=== PATIENT | male | born 1970 | race Two or more races ===

== ENCOUNTER 2017-05-27 21:50 | Emergency (ER) | payer MEDICAID ==
[~2017-05-27] VITALS: Ht 182.9 cm; Wt 95.3 kg
[2017-05-27 22:00] VITALS: BP 142/86
[2017-05-27] MEDS ORDERED: Acetaminophen 500mg (ES) tab ORAL ONE (22:30)
[2017-05-27] MEDS ORDERED: Ketorolac 30mg Inj IV ONE (22:30)
[2017-05-27 22:55] LABS: BASOPHILS % (AUTO) 1.7 % (0.0-2.0); EOSINOPHILS % (AUTO) 0.1 % (0.0-3.0); LYMPHOCYTES % (AUTO) 17.5 % (20.0-45.0); MEAN CORPUSCULAR HEMOGLOBIN 29.7 PG (27.0-31.0); MEAN CORPUSCULAR HGB CONC 32.7 G/DL (32.0-36.0); MEAN CORPUSCULAR VOLUME 91 FL (80-99); MONOCYTES % (AUTO) 12.4 % (1.0-10.0); NEUTROPHILS % (AUTO) 68.3 % (45.0-75.0); PLATELET COUNT 298 K/UL (150-450); RED BLOOD COUNT 4.88 M/UL (4.70-6.10); RED CELL DISTRIBUTION WIDTH 11.2 % (11.6-14.8); WHITE BLOOD COUNT 8.3 K/UL (4.8-10.8)
[2017-05-27 23:08] LABS: ANION GAP 6 mmol/L (5-15); CALCIUM 8.6 MG/DL (8.5-10.1); CARBON DIOXIDE 29 MMOL/L (21-32); CHLORIDE 90 MMOL/L (98-107); CREATININE 0.9 MG/DL (0.55-1.30); GLOMERULAR FILTRATION RATE > 60 mL/min (>60); POTASSIUM 3.5 MMOL/L (3.5-5.1); SODIUM 125 MMOL/L (136-145)
[2017-05-27 23:10] LABS: PROTHROMBIN TIME 10.6 SEC (9.30-11.50)
[2017-05-27 23:18] LABS: ALANINE AMINOTRANSFERASE 65 U/L (12-78); ALBUMIN/GLOBULIN RATIO 0.6 (1.0-2.7); ASPARTATE AMINO TRANSFERASE 42 U/L (15-37); TOTAL PROTEIN 8.8 G/DL (6.4-8.2)
[2017-05-27 23:21] LABS: APPEARANCE,URINE CLEAR; KETONES,URINE NEGATIVE (NEGATIVE); LEUKOCYTE ESTERASE ,URINE 1+ (NEGATIVE); NITRITE,URINE NEGATIVE (NEGATIVE); PH,URINE 7 (4.5-8.0); PROTEIN,URINE 3+ (NEGATIVE); UROBILINOGEN,URINE 1 MG/DL (0.0-1.0)
--- NOTE | 2017-05-27 23:27 | Emergency Room Report ---
History of Present Illness General Chief Complaint: Upper Respiratory Illness Source: Patient Present Illness HPI The patient has been ill for a week. He's had a cough and fever with chills. He is complaining of chest pain. He has dyspnea exertion and feels out of breath. He has no history of asthma. He also has chest pain which is constant. It also gets worse with deep breathing and exertion. The pain is severe radiated some to 8/10. He did not take any medication for this pain. No history of smoking, family history of cardiac disease, diabetes, hypertension , hypercholesterolemia. The patient has had some joint pains and headache. He feels weakened. There's no dizziness. Denies palpitations. His nausea without vomiting or diarrhea. There's no dysuria. Denies any skin rashes. The patient denies any drug use. Allergies: Coded Allergies: No Known Allergies (Unverified , 05/27/17) Patient History Past Medical History: see triage record Social History: Denies: smoking, alcohol use, drug use Social History Narrative , works maintenance Reviewed Nursing Documentation: PMH: Agreed, PSxH: Agreed Nursing Documentation-PMH Past Medical History: No Stated History Review of Systems All Other Systems: negative except mentioned in HPI Physical Exam Vital Signs Date Time Temp Pulse Resp B/P (MAP) Pulse Ox O2 Delivery O2 Flow Rate FiO2 05/27/17 21:52 100.9 125 18 142/86 96 Room Air Sp02 EP Interpretation: reviewed, abnormal - low as interpreted by me General Appearance: GCS 15, mild distress Head: normocephalic Eyes: bilateral eye normal inspection, bilateral eye PERRL ENT: moist mucus membranes Neck: supple Respiratory: crackles, other - decreased BS L Cardiovascular #1: no edema, tachycardia Cardiovascular #2: 2+ radial (R) Gastrointestinal: normal inspection, normal bowel sounds, non tender, no mass, non-distended Musculoskeletal: back normal, gait/station normal, normal range of motion, no calf tenderness Neurologic: alert, oriented x3, grossly normal Psychiatric: mood/affect normal Skin: normal inspection, warm/dry Procedures Critical Care Time Critical Care Time Total Critical Care Time: 30 min bedside evaluation and treatment excludes procedures (EKG). Reason for critical care: NSTEMI - transfer higher level Possible complications: hypotension, hypertension, [place], shock, arrhythmias, metabolic acidosis, end organ damage, respiratory failure. Interventions: Aspirin, antibiotics, fluid resuscitation, analgesia, transfer Course: Patient presents with febrile illness. Found to have + troponin and L infiltrate. CTA due to hypoxia. Antibiotics and analgesia ordered. Multiple discussions to arrange for transfer higher level of care. Aspirin given. Improved on re-evaluation. Consultations: nursing staff, EMS, family, [facility] - mat tester/industrial management teacher, ambulance transfer crew Performed by: Dr. Abdi Tolerated well condition = serious Medical Decision Making Diagnostic Impression: Primary Impression: NSTEMI (non-ST elevated myocardial infarction) Additional Impression: Pneumonia Qualified Codes: J18.1 - Lobar pneumonia, unspecified organism ER Course The patient presents with fever and chest pain with her cough. Differential includes influenza, pneumonia, bronchitis, acute cardial infarction, other infectious source. Evaluation will be was EKG, chest x-ray and labs. The patient will be treated with IV hydration and analgesia. He's hypoxemic in this is disconcerting in a nonsmoker. Initial EKG with some ST wave changes no STEMI. Chest x-ray with tenths left infiltrate and possible effusion. 23:15 lab called with + troponin. Antibiotics ordered, CTA also ordered and aspirin. Presented to [facility] mat tester - Dr. Melvin who accepts the patient and says no metoprolol or heparin. Presented to Dr. Woodall. Accepted at [facility]. Patient improved with 2/10 pain. Declines other pain medicine. Laboratory Tests Test 05/27/17 22:32 05/27/17 22:42 White Blood Count 8.3 K/UL (4.8-10.8) Red Blood Count 4.88 M/UL (4.70-6.10) Hemoglobin 14.5 G/DL (14.2-18.0) Hematocrit 44.4 % (42.0-52.0) Mean Corpuscular Volume 91 FL (80-99) Mean Corpuscular Hemoglobin 29.7 PG (27.0-31.0) Mean Corpuscular Hemoglobin Concent 32.7 G/DL (32.0-36.0) Red Cell Distribution Width 11.2 % (11.6-14.8) L Platelet Count 298 K/UL (150-450) Mean Platelet Volume 6.0 FL (6.5-10.1) L Neutrophils (%) (Auto) 68.3 % (45.0-75.0) Lymphocytes (%) (Auto) 17.5 % (20.0-45.0) L Monocytes (%) (Auto) 12.4 % (1.0-10.0) H Eosinophils (%) (Auto) 0.1 % (0.0-3.0) Basophils (%) (Auto) 1.7 % (0.0-2.0) Prothrombin Time 10.6 SEC (9.30-11.50) Prothrombin Time INR 1.0 (0.9-1.1) PTT 31 SEC (23-33) Sodium Level 125 MMOL/L (136-145) L Potassium Level 3.5 MMOL/L (3.5-5.1) Chloride Level 90 MMOL/L (98-107) L Carbon Dioxide Level 29 MMOL/L (21-32) Anion Gap 6 mmol/L (5-15) Blood Urea Nitrogen 9 mg/dL (7-18) Creatinine 0.9 MG/DL (0.55-1.30) Estimate Glomerular Filtration Rate > 60 mL/min (>60) Glucose Level 128 MG/DL (74-106) H Lactic Acid Level 0.80 mmol/L (0.66-2.22) Calcium Level 8.6 MG/DL (8.5-10.1) Total Bilirubin 0.4 MG/DL (0.2-1.0) Aspartate Amino Transferase (AST) 42 U/L (15-37) H Alanine Aminotransferase (ALT) 65 U/L (12-78) Alkaline Phosphatase 85 U/L (46-116) Total Creatine Kinase 140 U/L (26-308) Troponin I 0.178 ng/mL (0.000-0.056) Pro-B-Type Natriuretic Peptide 73 pg/mL (0-125) Total Protein 8.8 G/DL (6.4-8.2) H Albumin 3.3 G/DL (3.4-5.0) L Globulin 5.5 g/dL Albumin/Globulin Ratio 0.6 (1.0-2.7) L Urine Color Yellow Urine Appearance Clear Urine pH 7 (4.5-8.0) Urine Specific Sargent 1.005 (1.005-1.035) Urine Protein 3+ (NEGATIVE) H Urine Glucose (UA) Negative (NEGATIVE) Urine Ketones Negative (NEGATIVE) Urine Occult Blood 5+ (NEGATIVE) H Urine Nitrite Negative (NEGATIVE) Urine Bilirubin Negative (NEGATIVE) Urine Urobilinogen 1 MG/DL (0.0-1.0) H Urine Leukocyte Esterase 1+ (NEGATIVE) H Urine RBC 2-4 /HPF (0 - 0) H Urine WBC 10-15 /HPF (0 - 0) H Urine Squamous Epithelial Cells Occasional /LPF Urine Bacteria Few /HPF (NONE) Microbiology Date/Time Source Procedure Growth Status 05/27/17 22:32 Nasal Nares Influenza Types A,B Antigen (SAI) - Final Complete EKG Diagnostic Results Rate: normal Rhythm: NSR ST Segments: no acute changes Rhythm Strip Diag. Results EP Interpretation: yes Rhythm: no PVC's, no ectopy, other - ST Chest X-Ray Diagnostic Results Chest X-Ray Diagnostic Results : Chest X-Ray Ordered: Yes # of Views/Limited/Complete: 1 View Indication: Other Interpretation: no pneumothorax, other - L infiltrate, can't exclude effusion Impression: Other Electronically Signed by: Electronically signed by Tello Abdi MD CT/MRI/US Diagnostic Results CT/MRI/US Diagnostic Results : Imaging Test Ordered: CTA chest Impression infiltrate no PE Last Vital Signs Date Time Temp Pulse Resp B/P (MAP) Pulse Ox O2 Delivery O2 Flow Rate FiO2 05/28/17 05:19 100.3 98 18 141/83 96 Room Air Status: improved Disposition: XFER SHT-TRM HOSP Condition: Serious Scripts No Active Prescriptions or Reported Meds Referrals: [facility],REFERRING (PCP) Tello Abdi M.D. May 27, 2017 23:27
[2017-05-27] MEDS ORDERED: cefTRIAXone 1 GM in NS 55 ML IVPB ONE (23:30)
[2017-05-27 23:59] LABS: BACTERIA,URINE FEW /HPF; SQUAMOUS EPITHELIAL CELL,UR OCCASIONAL /LPF (NONE/OCC)
[2017-05-28 04:30] VITALS: BP 141/83
[2017-05-28 05:19] VITALS: BP 141/83
--- NOTE | 2017-05-28 08:43 | Diagnostic Imaging Report ---
Indication: Chest pain Technique: Continuous helical transaxial imaging of the chest was obtained from the thoracic inlet to the upper abdomen during rapid intravenous contrast administration. Arterial phase of enhancement obtained. Coronal 2-D reformats were also obtained and maximum intensity projection images in multiple planes. Study obtained in a Siemens sensation [address] Automatic Exposure Control was utilized. Total Dose length Product (DLP): 1299.[address] Dose Index Volume (CTDIvol): 33.86 0.17, 12.62 x 2 mGy Comparison: None Findings: The pulmonary artery is well opacified and shows no filling defects. There is dense lingular consolidation suspicious for pneumonia. Atelectasis versus secondary of infiltrate left lower lobe noted. Trace left pleural effusion is present. There is no adenopathy, pleural or pericardial effusions are identified. The aortic dissection or aneurysm identified within the chest. Visualized part of the upper abdomen is unremarkable. Impression: No pulmonary embolus or aortic dissection/aneurysm. Pneumonia involving the lingular segment. Follow-up and clinical correlation are recommended. [facility] has communicated the preliminary results to the Emergency Department. Their findings are largely concordant with this report. The CT scanner at [facility] is accredited by the [employer] and the scans are performed using dose optimization techniques as appropriate to a performed exam including Automatic Exposure control.
--- NOTE | 2017-05-28 12:16 | Diagnostic Imaging Report ---
Indication: Dyspnea Comparison: None A single view chest radiograph was obtained. Findings: Suspected infiltrate at the left lung base. Lung volumes are low bilaterally. Heart size is probably normal. There is an old left clavicle fracture. IMPRESSION: Suspected left basilar pneumonia.
--- NOTE | 2017-06-11 00:23 | Cardiology Report ---
APPROVED REPORT EKG Measurement Heart [id number] [place] [id number] Sinus tachycardia Otherwise normal ECG
--- NOTE | 2017-06-11 00:23 | Cardiology Report ---
APPROVED REPORT EKG Measurement Heart [id number] [id number] Sinus tachycardia with occasional premature ventricular complexes Inferior infarct, age undetermined Cannot rule out Anterior infarct, age undetermined Abnormal ECG
== END 2017-05-28 05:28 | disposition short-term general hospital (02) ==
LOC: EMR 22:30
DX: I21.4 Non-ST elevation (NSTEMI) myocardial infarction (principal); J18.9 Pneumonia, unspecified organism
CPT/HCPCS: 36415; 71010; 71275; 80053; 81003; 82550; 83605; 83880; 84484; 85025; 85610; 85730; 86710; 87086; 93005; 96361; 96365; 96366; 96375; 99285; J0696; J1885; J1956; Q9967

== ENCOUNTER 2017-06-18 20:17 | Emergency (ER) | payer MEDICAID ==
[~2017-06-18] VITALS: Ht 182.9 cm; Wt 90.7 kg
[2017-06-18] MEDS ORDERED: Ketorolac 30mg Inj IV ONE (20:45)
--- NOTE | 2017-06-18 21:00 | Emergency Room Report ---
History of Present Illness General Chief Complaint: Chest Pain Source: Patient Present Illness HPI The patient was awakened at 3 AM with chest pain. It's been intermittent. He wasn't short of breath at that time. No NV, palpitations, diaphoresis. It is somewhat better with ambulation and better today than last night. Pain now 2/10 , somewhat positional, not pleuritic. Not radiating. H/O recent evaluation at [facility] May 27. He had cardiac catheterization done at that time. He states his coronaries are clean. He presented with pneumonia and NSTEMI here and transferred. He denies fever chills nausea vomiting diarrhea melena. RF HTN and prior NSTEMI. 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 , maintenance Reviewed Nursing Documentation: PMH: Agreed, PSxH: Agreed Review of Systems All Other Systems: negative except mentioned in HPI Physical Exam Vital Signs Date Time Temp Pulse Resp B/P (MAP) Pulse Ox O2 Delivery O2 Flow Rate FiO2 06/18/17 20:22 98.8 69 18 139/90 98 Room Air Sp02 EP Interpretation: reviewed, normal General Appearance: well appearing, no apparent distress, GCS 15 Head: normocephalic Eyes: bilateral eye normal inspection ENT: moist mucus membranes Neck: supple Respiratory: lungs clear, normal breath sounds Cardiovascular #1: regular rate, rhythm Cardiovascular #2: 2+ radial (R) Gastrointestinal: normal inspection, normal bowel sounds, non tender, no mass, non-distended Musculoskeletal: back normal, gait/station normal, normal range of motion Neurologic: alert, oriented x3 Skin: normal inspection, warm/dry Medical Decision Making Diagnostic Impression: Primary Impression: Chest pain Qualified Codes: R07.89 - Other chest pain Additional Impression: Hypokalemia ER Course This patient with h/o NSTEMI and hypertension presents with chest pain. His presentation is atypical for CAD. He also had a recent cardiac catheterization which she states had normal coronaries. This bodes well, but with the recent h/ o NSTEMI we need to exclude cardiac injury. The patient reevaluated EKG, chest x-ray and labs. The patient will be treated with Pepcid and Toradol. EKG without injury. Labs with neg troponin. CXR clear. K low. Patient improved with treatment and denies pain. Patient stable for outpatient observation and treatment. Laboratory Tests Test 06/18/17 21:07 White Blood Count 6.2 K/UL (4.8-10.8) Red Blood Count 4.32 M/UL (4.70-6.10) L Hemoglobin 12.8 G/DL (14.2-18.0) L Hematocrit 40.3 % (42.0-52.0) L Mean Corpuscular Volume 93 FL (80-99) Mean Corpuscular Hemoglobin 29.7 PG (27.0-31.0) Mean Corpuscular Hemoglobin Concent 31.9 G/DL (32.0-36.0) L Red Cell Distribution Width 12.6 % (11.6-14.8) Platelet Count 276 K/UL (150-450) Mean Platelet Volume 7.1 FL (6.5-10.1) Neutrophils (%) (Auto) 42.0 % (45.0-75.0) L Lymphocytes (%) (Auto) 41.9 % (20.0-45.0) Monocytes (%) (Auto) 10.8 % (1.0-10.0) H Eosinophils (%) (Auto) 4.1 % (0.0-3.0) H Basophils (%) (Auto) 1.3 % (0.0-2.0) Sodium Level 140 MMOL/L (136-145) Potassium Level 3.3 MMOL/L (3.5-5.1) L Chloride Level 105 MMOL/L (98-107) Carbon Dioxide Level 28 MMOL/L (21-32) Anion Gap 7 mmol/L (5-15) Blood Urea Nitrogen 8 mg/dL (7-18) Creatinine 0.7 MG/DL (0.55-1.30) Estimate Glomerular Filtration Rate > 60 mL/min (>60) Glucose Level 110 MG/DL (74-106) H Calcium Level 9.2 MG/DL (8.5-10.1) Total Bilirubin 0.4 MG/DL (0.2-1.0) Aspartate Amino Transferase (AST) 30 U/L (15-37) Alanine Aminotransferase (ALT) 71 U/L (12-78) Alkaline Phosphatase 98 U/L (46-116) Total Creatine Kinase 403 U/L (26-308) H Troponin I 0.000 ng/mL (0.000-0.056) Total Protein 7.8 G/DL (6.4-8.2) Albumin 3.8 G/DL (3.4-5.0) Globulin 4.0 g/dL Albumin/Globulin Ratio 0.9 (1.0-2.7) L EKG Diagnostic Results Rate: normal Rhythm: NSR ST Segments: no acute changes ASA given to the pt in ED: No - he took ASA in AM Rhythm Strip Diag. Results EP Interpretation: yes Rhythm: NSR, no PVC's, no ectopy Chest X-Ray Diagnostic Results Chest X-Ray Diagnostic Results : Chest X-Ray Ordered: Yes # of Views/Limited/Complete: 1 View Indication: Chest Pain EP Interpretation: Yes Interpretation: no consolidation, no effusion, no pneumothorax, no acute cardiopulmonary disease Impression: No acute disease Electronically Signed by: Tello Abdi MD Last Vital Signs Date Time Temp Pulse Resp B/P (MAP) Pulse Ox O2 Delivery O2 Flow Rate FiO2 06/18/17 23:19 98.8 88 18 141/89 98 Room Air Status: improved Disposition: HOME, SELF-CARE Condition: Improved Scripts Ibuprofen* (MOTRIN*) 600 Mg Tablet 600 MG ORAL Q6H Y for For Pain, #20 TAB Prov: Tello Abdi M.D. 06/18/17 Famotidine (PEPCID) 20 Mg Tablet 20 MG ORAL DAILY, #30 TAB 0 Refills Prov: Tello Abdi M.D. 06/18/17 Tello Abdi M.D. Jun 18, 2017 21:00
[2017-06-18 21:33] LABS: BASOPHILS % (AUTO) 1.3 % (0.0-2.0); EOSINOPHILS % (AUTO) 4.1 % (0.0-3.0); HEMATOCRIT 40.3 % (42.0-52.0); HEMOGLOBIN 12.8 G/DL (14.2-18.0); LYMPHOCYTES % (AUTO) 41.9 % (20.0-45.0); MEAN CORPUSCULAR VOLUME 93 FL (80-99); MONOCYTES % (AUTO) 10.8 % (1.0-10.0); PLATELET COUNT 276 K/UL (150-450); RED BLOOD COUNT 4.32 M/UL (4.70-6.10); RED CELL DISTRIBUTION WIDTH 12.6 % (11.6-14.8); WHITE BLOOD COUNT 6.2 K/UL (4.8-10.8)
[2017-06-18 21:48] LABS: ANION GAP 7 mmol/L (5-15); BLOOD UREA NITROGEN 8 mg/dL (7-18); CALCIUM 9.2 MG/DL (8.5-10.1); CARBON DIOXIDE 28 MMOL/L (21-32); CHLORIDE 105 MMOL/L (98-107); CREATININE 0.7 MG/DL (0.55-1.30); POTASSIUM 3.3 MMOL/L (3.5-5.1); SODIUM 140 MMOL/L (136-145)
[2017-06-18 21:53] LABS: ALANINE AMINOTRANSFERASE 71 U/L (12-78); ALBUMIN 3.8 G/DL (3.4-5.0); ALBUMIN/GLOBULIN RATIO 0.9 (1.0-2.7); ALKALINE PHOSPHATASE 98 U/L (46-116); ASPARTATE AMINO TRANSFERASE 30 U/L (15-37); BILIRUBIN,TOTAL 0.4 MG/DL (0.2-1.0); CREATINE KINASE 403 U/L (26-308)
[2017-06-18] MEDS ORDERED: PEPCID20 MG ORAL (22:58)
[2017-06-18] MEDS ORDERED: IBUPROFEN600 MG ORAL (22:58)
[2017-06-18 23:18] VITALS: BP 141/89
[2017-06-18 23:19] VITALS: BP 141/89
--- NOTE | 2017-06-19 11:19 | Diagnostic Imaging Report ---
Indication: Chest pain Comparison: 05/27/2017 A single view chest radiograph was obtained. Findings: Cardiomediastinal appearance is within normal limits for age. Pulmonary vascularity is appropriate. The diaphragmatic contour is smooth and costophrenic angles are sharp. No pleural effusions are identified. The bones are unremarkable. Impression: No acute findings
--- NOTE | 2017-06-19 15:42 | Cardiology Report ---
APPROVED REPORT EKG Measurement Heart [id number] [place] 162P19 [id number] Normal sinus rhythm Nonspecific ST abnormality Abnormal ECG
== END 2017-06-18 23:19 | disposition home or self-care (01) ==
LOC: EMR 20:30
DX: R07.89 Other chest pain (principal); E87.6 Hypokalemia; I10 Essential (primary) hypertension; I25.2 Old myocardial infarction; Z98.61 Coronary angioplasty status
CPT/HCPCS: 36415; 71045; 80053; 82550; 84484; 85025; 93005; 96374; 96375; 99284; J1885; S0028